=== PATIENT | male | born 1950 | race Caucasian/White ===

== ENCOUNTER → 2017-11-23 | Day surgery (SDC) | payer OTHER ==
[~2017-11-23] VITALS: Ht 172.7 cm; Wt 78.0 kg
[~2017-11-23] MED LIST: OXYCODONE HCL5 M1 PO
--- NOTE | 2017-11-23 17:48 | Operative Report ---
Operative/Inv Procedure Report Surgery Date: 11/23/17 Name of Procedure: Robotic TAP repair of left inguinal hernia with 3-D Max medium mesh and open repair of incarcerated umbilical hernia Pre-Operative Diagnosis: Incarcerated umbilical hernia and left inguinal hernia Post-Operative Diagnosis: Same, indirect Estimated Blood Loss: none Surgeon/Excavator Backhoe Operator: Leonid ARIAS,Ray hernandez PAC Anesthesia: general endotracheal tube IV Fluids: 1200 mL crystalloid Implants: 3-D Max medium mesh Drains: None Specimens: None Complications: None Condition: Excellent to PACU extubated Operative Indication: Kale is a 67-year-old gentleman whose had a progressive bulge in the left groin become more difficult to reduce. He is also found to have a small incarcerated hernia at the umbilicus and he presents for robotic repair of the left inguinal hernia with open repair of the umbilical hernia through which the camera will be introduced Operative/Procedure Note Note: The patient is taken to the operating room and placed on the operating table in supine position. Given marked in the preop holding area at the left side being correct. Timeout was performed and then he underwent uneventful induction of general endotracheal anesthesia. Arms were tucked by his side Venodyne boots in place received Kefzol IV prior to skin incision. The abdomen was then clipped widely of hair including the groins and prepped with DuraPrep and then draped in usual sterile fashion using Ioban. Local anesthetic was infiltrated in the supraumbilical area where a curvilinear incision was made and carried down to the fascia. The fascia was then incised parallel to the abdominal wall undermining the umbilicus and into the umbilical stalk. This revealed the fat coming up through the defect adherent to the back of the umbilical dermis. This was able to be dissected off now fully and the umbilicus freed. The protruding preperitoneal fat was then dissected circumferentially at the level of the tetlin fascia and the fascia cleared circumferentially. The fascial defect was 1 and 1/2 cm. Now the preperitoneal fat was elevated we dissected through this to the to define the peritoneum. The peritoneum was then incised carefully to gain entry safely into the peritoneal cavity. A finger sweep revealed there were no adhesions and a 12 mm Young port aerocele was placed secured with stay sutures. Pneumoperitoneum was achieved and the 8 mm da Raffy 30 scope inserted. We could see right away a left inguinal hernia with sigmoid colon bent slightly up into the indirect defect. The right side, which had been repaired previously, was intact. Two 8 mm working ports were placed under direct vision after infiltrating local anesthetic, 1 in the right lower quadrant and one in the left upper quadrant in a line more or less 90 to the location of the left internal ring. Now the [employer] robot was docked and the camera placed and targeted at the internal ring. A monopolar sherman was placed in the right hand four-port and a fenestrated bipolar in the #2 port on the left. The peritoneal flap was then created by opening 4 cm cephalad to the apex of the internal ring. The incision was arched laterally slightly and then carried to the midline across the medial umbilical ligament. The epigastric vessels could be well seen and were preserved. The flap was created now dissecting down to the defect at the level of the internal ring and creating a space laterally preserving the fibrofatty tissue on the lateral musculature working close to the back of the peritoneum and then medially dissecting down through fat to the symphysis pubis. I then followed the ramus laterally stopping short of the venous pulsation. Attention was now turned toward reducing the indirect hernia. The direct space looked normal. The sac was elongated well up within the defect and was able to be pulled out and the apex identified and it was rolled off of the cord and the margins of the defect. More posteriorly the peritoneum went distally again and this needed to be freed up off of the cord almost separately from the portion that was the deepest within the internal ring. Doing so I was able to visualize the entirety of the cord including the medial deviation of the vas. I took down some of the medial attachments now from the back of the epigastrics and carried the dissection into the gutter between direct and indirect spaces to accommodate the mesh. A 3-D Max medium left mesh was selected and placed into the space. There was excellent coverage of the myopectineal orifice and the mesh fit nicely within the flap. I used 2 Tycron sutures 2-0 to secure the mesh to the abdominal wall one at the level of the symphysis just off the periosteum and the other laterally taking a very superficial bite some of the thin lateral fashion so as not to injure any nerves. The inferior edge of the mesh sat nicely above where I dissected the peritoneum off the cord and I then closed the flap with a running 2-0 absorbable V lock suture. The robot was then undocked and we removed ports under direct vision. We released the pneumo completely remove the Young port at the umbilicus and then closed the fascia at the umbilical defect with 2 sutures [id number] of 0 Maxon interrupted. Subcutaneous space was reapproximated with interrupted 3-0 Vicryl suture and skin closed with 4-0 Monocryl running subcuticular throughout. Steri-Strips 4 x 4's and OpSite were placed. The patient tolerated the procedure well was taken to the recovery room in satisfactory condition all sponge needle injury count confirmed as correct 2 completion of the case. There was no subcutaneous emphysema and a moderate pneumo scrotum at this point which was decompressed with some manual pressure Findings: Elongated indirect sac with sigmoid colon at the introitus to dilated internal ring. Normal direct space. One and a half centimeter umbilical defect with incarcerated preperitoneal fat. Discharge Disposition: PACU
== END ==
LOC: STS 02:11
DX: K40.90 Unilateral inguinal hernia, without obstruction or gangrene, not specified as recurrent (principal); K42.0 Umbilical hernia with obstruction, without gangrene; I25.10 Atherosclerotic heart disease of native coronary artery without angina pectoris; I10 Essential (primary) hypertension
CPT/HCPCS: C1781; C9290; J0131; J0690; J1100; J2250; J2405; J3490